=== PATIENT | male | born 1940 | race Caucasian/White ===

== ENCOUNTER 2016-06-25 05:03 | Day surgery (SDCO) | payer MEDICARE, OTHER ==
[~2016-06-25] VITALS: Ht 183 cm; Wt 96.0 kg
[2016-06-25 06:00] LABS: BASOPHIL 0.3 % (0-2); EOSINOPHIL 1.1 % (0-7); HCT 42.6 % (42.0-52.0); HGB 14.7 g/dl (13.2-18.0); LYMPHOCYTE 14.8 % (15-48); MCH 29.3 pg (25.0-31.0); MCHC 34.5 g/dL (32.0-36.0); MONOCYTE 6.5 % (0-12); MPV 10.8 fL (6.0-9.5); NEUTROPHIL 77.3 % (41-80); PLT 256 K/uL (150-400); RBC 5.01 M/uL (4.70-6.00); RDW 13.5 % (11.5-14.0); WBC 9.4 K/uL (4.0-10.5)
[2016-06-25 06:16] LABS: INR 0.98 (0.9-1.2); PROTHROMBIN TIME 12.6 SECONDS (11.7-14.0); PTT 28.1 SECONDS (23.2-31.4)
[2016-06-25 06:25] LABS: ALBUMIN 4.2 g/dL (3.4-4.8); BILIRUBIN - TOTAL 0.3 mg/dL (0.1-1.0); CREATININE 0.7 mg/dL (0.7-1.2); GLOBULIN (CALCULATION) 2.2 g/dL (2.2-4.2); POTASSIUM 4.7 mmol/L (3.5-5.1); TOTAL PROTEIN 6.4 g/dL (6.4-8.3)
[2016-06-25 14:27] LABS: BASOPHIL NO PRINT 0.3 % (0-2); EOSINOPHIL NO PRINT 0.8 % (0-7); HCT 41.2 % (42.0-52.0); HGB 14.2 g/dL (13.2-18.0); LYMPHOCYTE NO PRINT 16.3 % (15-48); MCH NO PRINT 29.3 pg (25.0-31.0); MCHC NO PRINT 34.5 g/dL (32.0-36.0); MCV NO PRINT 84.9 fL (78.0-100.0); MONOCYTE NO PRINT 6.7 % (0-12); MPV NO PRINT 10.5 fL (6.0-9.5); NEUTROPHIL NO PRINT 75.9 % (41-80); PLT NO PRINT 248 K/uL (150-400); RBC NO PRINT 4.85 M/uL (4.70-6.00); RDW NO PRINT 13.4 % (11.5-14.0); WBC NO PRINT 10.2 K/uL (4.0-10.5)
[2016-06-25 22:39] LABS: BASOPHIL NO PRINT 0.4 % (0-2); EOSINOPHIL NO PRINT 0.8 % (0-7); HGB 14.8 g/dL (13.2-18.0); LYMPHOCYTE NO PRINT 14.9 % (15-48); MCH NO PRINT 29.2 pg (25.0-31.0); MCHC NO PRINT 34.4 g/dL (32.0-36.0); MCV NO PRINT 84.8 fL (78.0-100.0); MONOCYTE NO PRINT 6.5 % (0-12); MPV NO PRINT 10.5 fL (6.0-9.5); NEUTROPHIL NO PRINT 77.4 % (41-80); PLT NO PRINT 266 K/uL (150-400); RBC NO PRINT 5.07 M/uL (4.70-6.00); RDW NO PRINT 13.7 % (11.5-14.0); WBC NO PRINT 12.8 K/uL (4.0-10.5)
[2016-06-26 04:30] LABS: HCT 39.3 % (42.0-52.0); HGB 13.5 g/dl (13.2-18.0); MCH 29.5 pg (25.0-31.0); MCHC 34.4 g/dL (32.0-36.0); MCV 85.8 fL (78.0-100.0); MPV 10.7 fL (6.0-9.5); RBC 4.58 M/uL (4.70-6.00); RDW 13.5 % (11.5-14.0)
[2016-06-26 04:52] LABS: CREATININE 0.7 mg/dL (0.7-1.2); POTASSIUM 4.2 mmol/L (3.5-5.1)
== END 2016-06-26 16:04 | disposition home or self-care (01) ==
LOC: FER 05:03 → FMS 08:10
PROVIDERS: Emergency Medicine; ADMIT Internal Medicine
DX: K29.50 Unspecified chronic gastritis without bleeding (principal); K44.9 Diaphragmatic hernia without obstruction or gangrene; K57.30 Diverticulosis of large intestine without perforation or abscess without bleeding; K64.0 First degree hemorrhoids; K21.9 Gastro-esophageal reflux disease without esophagitis; I10 Essential (primary) hypertension; E11.9 Type 2 diabetes mellitus without complications; E78.5 Hyperlipidemia, unspecified; G47.33 Obstructive sleep apnea (adult) (pediatric); M19.90 Unspecified osteoarthritis, unspecified site; N40.0 Benign prostatic hyperplasia without lower urinary tract symptoms; Z88.5 Allergy status to narcotic agent; Z90.89 Acquired absence of other organs; Z98.890 Other specified postprocedural states; Z90.79 Acquired absence of other genital organ(s); Z96.653 Presence of artificial knee joint, bilateral; Z90.49 Acquired absence of other specified parts of digestive tract; Z87.891 Personal history of nicotine dependence; Z82.49 Family history of ischemic heart disease and other diseases of the circulatory system; Z83.3 Family history of diabetes mellitus; Z80.1 Family history of malignant neoplasm of trachea, bronchus and lung; Z79.891 Long term (current) use of opiate analgesic; Z79.84 Long term (current) use of oral hypoglycemic drugs; Z79.899 Other long term (current) drug therapy
CPT/HCPCS: 36415; 80048; 80053; 82150; 82962; 83690; 85014; 85018; 85025; 85610; 85730; 86850; 86900; 86901; 88305; 93005; 94010; C9113; G0378; J2704

== ENCOUNTER 2020-12-06 16:26 | Emergency (ER) | payer MEDICARE, OTHER ==
[~2020-12-06 16:26] MED LIST: ASPIRIN CHEWABL81 MG PO; BACTRIM DS TAB1 EACH PO; FLOMAX0.4 MG PO; LOPRESSOR25 MG PO; METFORMIN HCL500 M2 PO; MIRAPEX0.125 MG PO; MOBIC15 MG PO; NEURONTIN300 MG PO; NITROFURANTOIN100 M1 PO; NORTRIPTYLINE H50 MG PO; NORVASC10 MG PO; PERCOCET 5-3251 EACH PO; PROSCAR5 MG PO; TAMSULOSIN HCL0.4 MG PO; VITAMIN B-121000 MC1 PO; ZESTRIL40 MG PO; ZOCOR20 MG PO
[2020-12-06 19:58] LABS: BASOPHIL 0.6 % (0-2); EOSINOPHIL 1.7 % (0-7); HCT 45.4 % (42.0-52.0); HGB 15.1 g/dl (13.2-18.0); LYMPHOCYTE 17.5 % (15-48); MCH 29.3 pg (25.0-31.0); MCHC 33.3 g/dL (32.0-36.0); MONOCYTE 6.9 % (0-12); MPV 10.9 fL (6.0-9.5); NRBC 0; PLT 245 K/uL (150-400); RBC 5.16 M/uL (4.70-6.00); RDW 13.2 % (11.5-14.0); WBC 12.3 K/uL (4.0-10.5)
[2020-12-06 20:12] LABS: ALBUMIN 3.8 g/dL (3.4-5.0); BILIRUBIN - TOTAL 0.3 mg/dL (0.2-1.0); BUN/CREAT RATIO (CALC) 18.8 RATIO; CREATININE 1.17 mg/dL (0.67-1.17); GLOBULIN (CALCULATION) 3.1 g/dL; POTASSIUM 4.2 mmol/L (3.5-5.1); TOTAL PROTEIN 6.9 g/dL (6.4-8.2)
[2020-12-06 20:17] LABS: PRO-BNP 96 pg/mL (<450)
[2020-12-06 20:36] LABS: BILIRUBIN NEGATIVE (NEGATIVE); BLOOD NEGATIVE Ery/uL (NEGATIVE); CLARITY CLEAR (CLEAR); COLOR YELLOW (YELLOW); GLUCOSE (U) TRACE mg/dL (NORMAL); LEUKOCYTES NEGATIVE Leu/uL (NEGATIVE); NITRITE NEGATIVE (NEGATIVE); PROTEIN NEGATIVE (NEGATIVE); UROBILINOGEN 0.2 mg/dL (0.2-1.0); pH 5.5 (5.0-9.0)
== END 2020-12-06 21:40 | disposition home or self-care (01) ==
LOC: FER 16:26
PROVIDERS: Emergency Medicine
DX: E86.0 Dehydration (principal); E11.9 Type 2 diabetes mellitus without complications; I10 Essential (primary) hypertension; E78.5 Hyperlipidemia, unspecified; Z88.5 Allergy status to narcotic agent
CPT/HCPCS: 36415; 71045; 80053; 81003; 83880; 84484; 85025; 93005; J7030